=== PATIENT | female | born 1935 | race Caucasian/White ===

== ENCOUNTER 2017-04-12 11:17 | Inpatient (IN) | payer OTHER ==
[~2017-04-12] VITALS: Ht 165.1 cm; Wt 31.8 kg
[2017-04-12] MEDS ORDERED: APETIGEN-PLUS1 EACH (12:00)
[2017-04-12] MEDS ORDERED: NEURONTIN300 MG BC (12:02)
[2017-04-12] MEDS ORDERED: TOPROL XL50 M1 BC (12:03)
[2017-04-12] MEDS ORDERED: LASIX20 MG BC (12:05)
[2017-04-17] MEDS ORDERED: NEURONTIN300 MG PO (16:45)
[2017-04-17] MEDS ORDERED: LEVAQUIN500 MG PO (16:45)
[2017-04-17] MEDS ORDERED: NeurRONTin 100mg cap PO (16:45)
[2017-04-17] MEDS ORDERED: TOPROL XL50 M1 PO (16:45)
[2017-04-17] MEDS ORDERED: FOLIC ACID1 MG PO (16:45)
[2017-04-17] MEDS ORDERED: APETIGEN-PLUS1 EACH PO (16:45)
[2017-04-17] MEDS ORDERED: Neurin-Sl Tablet Sl SL (16:45)
[2017-04-17] MEDS ORDERED: CENTRUM WOMEN1 EACH PO (16:45)
== END 2017-04-17 21:18 | disposition home or self-care (01) | DRG 689 ==
LOC: ER 11:17 → SEC-K 04-13 13:27 → MEDI 04-13 13:27
PROC: BW4GZZZ Ultrasonography of Pelvic Region (ICD-10-PCS; principal; 2017-04-13)
DX: N39.0 Urinary tract infection, site not specified (principal); A41.9 Sepsis, unspecified organism; E86.0 Dehydration; Z74.01 Bed confinement status; B96.4 Proteus (mirabilis) (morganii) as the cause of diseases classified elsewhere